=== PATIENT | female | born 1980 | race Caucasian/White ===

== ENCOUNTER 2017-02-14 17:49 | Emergency (ER) | payer SELFPAY ==
[2017-02-14] MEDS ORDERED: NORCO 5/325 PO ONE (20:05)
[2017-02-14] MEDS ORDERED: MARCAINE 0.5% INFILTRATI ONE ×2 (20:05→20:08)
[2017-02-14] MEDS ORDERED: MARCAINE 0.25% INFILTRATI ONE (20:06)
[2017-02-14] MEDS ORDERED: CLEOCIN PO ONE (20:08)
[2017-02-14] MEDS ORDERED: XYLOCAINE 2%/ EPI 1:200,000 INFILTRATI ONE (20:58)
--- NOTE | 2017-02-14 21:53 | Emergency Department Report ---
- General Chief Complaint: Skin/Abscess/Foreign Body Stated Complaint: SWOLLEN LIP Time Seen by Provider: 02/14/17 19:51 Source: patient Mode of arrival: Ambulatory Limitations: No Limitations - History of Present Illness Initial Comments: 36-year-old female past medical history denies presents with complaint of right lower lip swelling. Patient states that for 2 days her lip has become swollen and painful. Denies any fevers chills no pus drainage. Patient speaking in full sentences denies any recent dental work no recent lip piercings. Denies any nausea or vomiting. States that she feels pressure and pain in the right lower aspect portion of her lip. Patient states she may have bitten her lip 2 days ago. Onset/Timin -: days(s) Location: other (lower lip right side) Place: home Patient Tetanus UTD: Yes Associated Symptoms: pain - Related Data Previous Rx's Medication Instructions Recorded Last Taken Type Clindamycin [Clindamycin CAP] 300 mg PO Q6H #28 capsule 02/14/17 Unknown Rx Naproxen [Naprosyn TAB] 500 mg PO BID PRN #20 tablet 02/14/17 Unknown Rx Neomycn/Baci Zn/Pmyx Bs/Pramox 28 gm TP BID #1 oint...g. 02/14/17 Unknown Rx [Triple Antibioti-Pain Rlf Oint] Allergies Allergy/AdvReac Type Severity Reaction Status Date / Time Sulfa (Sulfonamide Allergy Shortness Verified 02/14/17 18:25 Antibiotics) of Breath ED Review of Systems ROS: Stated complaint: SWOLLEN LIP Other details as noted in HPI Constitutional: denies: chills, fever Eyes: denies: eye pain, eye discharge, vision change ENT: other (lip swelling and pain for 2 days). denies: ear pain, throat pain Respiratory: denies: cough, shortness of breath, wheezing Cardiovascular: denies: chest pain, palpitations Endocrine: no symptoms reported Gastrointestinal: denies: abdominal pain, nausea, diarrhea Genitourinary: denies: urgency, dysuria, discharge Musculoskeletal: denies: back pain, joint swelling, arthralgia Skin: denies: rash, lesions Neurological: denies: headache, weakness, paresthesias Psychiatric: denies: anxiety, depression Hematological/Lymphatic: denies: easy bleeding, easy bruising ED Past Medical Hx - Past Medical History Previous Medical History?: No - Surgical History Additional Surgical History: 4 C-Sections - Social History Smoking Status: Current Every Day Smoker Substance Use Type: Alcohol - Medications Home Medications: Home Medications Medication Instructions Recorded Confirmed Last Taken Type Clindamycin [Clindamycin CAP] 300 mg PO Q6H #28 capsule 02/14/17 Unknown Rx Naproxen [Naprosyn TAB] 500 mg PO BID PRN #20 tablet 02/14/17 Unknown Rx Neomycn/Baci Zn/Pmyx Bs/Pramox 28 gm TP BID #1 oint...g. 02/14/17 Unknown Rx [Triple Antibioti-Pain Rlf Oint] ED Physical Exam - General Limitations: No Limitations General appearance: alert, in no apparent distress - Head Head exam: Present: atraumatic, normocephalic - Eye Eye exam: Present: normal appearance, PERRL, EOMI - ENT ENT exam: Present: mucous membranes moist - Expanded ENT Exam Expanded Mouth exam: Present: other (visible swelling right lower lip region. Small abscess head below Clarke border below right lip on right side) - Neck Neck exam: Present: normal inspection - Respiratory Respiratory exam: Present: normal lung sounds bilaterally. Absent: respiratory distress - Cardiovascular Cardiovascular Exam: Present: regular rate, normal rhythm. Absent: systolic murmur, diastolic murmur, rubs, gallop - GI/Abdominal GI/Abdominal exam: Present: soft, normal bowel sounds - Extremities Exam Extremities exam: Present: normal inspection - Back Exam Back exam: Present: normal inspection - Neurological Exam Neurological exam: Present: alert, oriented X3 - Psychiatric Psychiatric exam: Present: normal affect, normal mood - Skin Skin exam: Present: warm, dry, intact, normal color. Absent: rash ED Course Vital Signs 02/14/17 02/14/17 02/14/17 18:25 19:15 20:09 Temperature 99.5 F Pulse Rate 97 H 91 H Respiratory 20 18 18 Rate Blood Pressure 155/106 Blood Pressure 165/106 [Left] O2 Sat by Pulse 100 100 Oximetry - I & D Right Lower Face Type of Procedure: Complex Site: right lower lip Blade Size: 18 gauge needle aspiration I & D Procedure: betadine prep Progress: On external skin below Joey border I used ultrasound to try to localize an abscess. Bupivacaine used on external skin surface.. Minimal accumulation of pus. I used needle aspiration to extrude a small amount of pus less than 1 mL. Wound culture. sent using was pus. On internal mucosa of the lip I used bupivacaine as well as a small amount of lidocaine 1% less than 3-4 mL total to provide local anesthesia. Small stab incision made at palpable area of induration/fluctuance. Tiny amount of pus drainage here as well. Incision and drainage procedure tolerated well minimal bleeding ED Medical Decision Making - Medical Decision Making A/P: Lip abscess/lip cellulitis 1-case discussed with Dr. Kinght who also examined the patient 2-naproxen when necessary for pain 3-clindamycin 7 day course 4- using both needle aspiration and small puncture using stab technique with scalpel small amount of pus extruded from lip on the external surface of skin as well as inner lip mucosa. Wound culture sent. 5- I gave patient referral information for ENT and [place] [facility]. I advised her to call for follow-up within the next week 6-I advised the patient to return to the ED if she experiences fevers chills worsened swelling any significant pus drainage from lip or if lip becomes more swollen. I advised patient to follow up with ENT as they can provide her with further management of this cellulitis/abscess Critical care attestation.: If time is entered above; I have spent that time in minutes in the direct care of this critically ill patient, excluding procedure time. ED Disposition Clinical Impression: Cellulitis, lip, Abscess of lip Disposition: DISCHARGED TO HOME OR SELFCARE Is pt being admited?: No Does the pt Need Aspirin: No Condition: Stable Instructions: Cellulitis (ED), Abscess Incision and Drainage (ED) Prescriptions: Clindamycin [Clindamycin CAP] 300 mg PO Q6H #28 capsule Naproxen [Naprosyn TAB] 500 mg PO BID PRN #20 tablet PRN Reason: Pain Neomycn/Baci Zn/Pmyx Bs/Pramox [Triple Antibioti-Pain Rlf Oint] 28 gm TP BID #1 oint...g. Referrals: ENT [facility] [Provider Group] - 3-5 Days [facility] [Provider Group] - 3-5 Days [facility] [Provider Group] - 3-5 Days [facility] [Outside] - 3-5 Days [facility] [Outside] - 3-5 Days Forms: Work/School Release Form(ED) Time of Disposition: 21:58
[2017-02-14] MEDS ORDERED: TRIPLE ANTIBIOTIC TP ONE (22:00)
[2017-02-14] MEDS ORDERED: BOOSTRIX IM ONE (22:00)
[2017-02-14] MEDS ORDERED: MOTRIN PO ONE (22:01)
[2017-02-14 22:24] VITALS: BP 156/100
== END 2017-02-14 22:22 | disposition home or self-care (01) ==
LOC: ED 17:49
DX: K13.0 Diseases of lips (principal); F17.200 Nicotine dependence, unspecified, uncomplicated
CPT/HCPCS: 87076; 87116; 87186; 90471; 90715; 99283; A6250